=== PATIENT | female | born 1985 | race Two or more races ===

== ENCOUNTER 2019-03-27 21:10 | Emergency (ER) | payer OTHER ==
[~2019-03-27] VITALS: Ht 162.6 cm; Wt 74.8 kg
[2019-03-27] MEDS ORDERED: ATABEX DHA 200200 MG (21:20)
== END 2019-03-27 23:26 | disposition home or self-care (01) ==
LOC: ER 21:10
DX: O34.81 Maternal care for other abnormalities of pelvic organs, first trimester (principal); N83.292 Other ovarian cyst, left side; Z34.81 Encounter for supervision of other normal pregnancy, first trimester

== ENCOUNTER → 2019-06-15 | Outpatient (CLI) | payer OTHER ==
[~2019-06-15] MED LIST: ATABEX DHA 200200 MG
== END | disposition home or self-care (01) ==
LOC: PRENATAL 09:00
DX: O09.522 Supervision of elderly multigravida, second trimester (principal); O44.02 Complete placenta previa NOS or without hemorrhage, second trimester; O34.211 Maternal care for low transverse scar from previous cesarean delivery

== ENCOUNTER 2019-09-01 19:31 | Emergency (ER) | payer OTHER ==
[~2019-09-01] VITALS: Ht 152.4 cm; Wt 86.2 kg
== END 2019-09-01 22:02 | disposition home or self-care (01) ==
LOC: ER 19:31
DX: O26.893 Other specified pregnancy related conditions, third trimester (principal); S30.1XXA Contusion of abdominal wall, initial encounter; Z34.03 Encounter for supervision of normal first pregnancy, third trimester; V49.9XXA Car occupant (driver) (passenger) injured in unspecified traffic accident, initial encounter; Y93.89 Activity, other specified; Y92.488 Other paved roadways as the place of occurrence of the external cause; Y99.8 Other external cause status

== ENCOUNTER 2019-10-25 13:47 | Inpatient (IN) | payer OTHER ==
[~2019-10-25] VITALS: Ht 162.6 cm; Wt 88.0 kg
[2019-10-25] MEDS ORDERED: PRENATAL TABLE1 EAC1 PO (15:07)
[2019-10-28] MEDS ORDERED: SIMETHICONE125 M1 PO (10:54)
[2019-10-28] MEDS ORDERED: IBUPROFEN800 MG PO (10:54)
[2019-10-28] MEDS ORDERED: PREPLUS CA-FE1 EACH PO (10:54)
[2019-10-28] MEDS ORDERED: DOCUSATE SODIU100 MG PO (10:54)
== END 2019-10-28 11:59 | disposition home or self-care (01) | DRG 785 ==
LOC: OB/GYN 13:47 → LDR 13:47 → O/R 19:39 → OB/GYN 20:16
PROVIDERS: ADMIT Obstetrics & Gynecology
PROC: 0UL70ZZ Occlusion of Bilateral Fallopian Tubes, Open Approach (ICD-10-PCS; 2019-10-25)
PROC: 4A1HXCZ Monitoring of Products of Conception, Cardiac Rate, External Approach (ICD-10-PCS; 2019-10-25)
PROC: 10D00Z1 Extraction of Products of Conception, Low, Open Approach (ICD-10-PCS; principal; 2019-10-25 17:45)
DX: O82 Encounter for cesarean delivery without indication (principal); Z3A.38 38 weeks gestation of pregnancy; Z37.0 Single live birth; Z30.2 Encounter for sterilization